=== PATIENT | female | born 1940 | race Caucasian/White ===

== ENCOUNTER 2016-12-19 18:53 | Outpatient (CLI) | payer MEDICARE, BC ==
--- NOTE | 2016-12-20 14:05 | Ultrasound Report ---
TRANSVAGINAL PELVIC ULTRASOUND: 12/19/2016 CLINICAL HISTORY: The patient having vaginal bleeding. The patient had a hysterectomy 20 years ago. FINDINGS: The uterus has been surgically removed. The right ovary has been surgically removed. The l eft ovary was surgically removed. Transvaginal ultrasound showed no significant abnormality. IMPRESSION: 1. PAST HISTORY OF TOTAL HYSTERECTOMY. 2. PRESENT TRANSVAGINAL ULTRASOUND SHOWS NO ABNORMALITY. JOB #: [id number] EXT JOB #:[id number]
== END 2016-12-19 18:54 | disposition home or self-care (01) ==
LOC: DI 18:53
PROVIDERS: ATTEND Nurse Practitioner Family
DX: N93.9 Abnormal uterine and vaginal bleeding, unspecified (principal); Z90.710 Acquired absence of both cervix and uterus
CPT/HCPCS: 76830

== ENCOUNTER 2017-01-22 14:50 | Outpatient (CLI) | payer MEDICARE, BC ==
--- NOTE | 2017-01-22 17:01 | Ultrasound Report ---
ABDOMINAL ULTRASOUND: 01/22/2017 CLINICAL INDICATION: Followup pancreatic lesion. COMPARISON: 07/06/2016, 01/11/2016, 07/05/2015, 12/24/2014 TECHNIQUE: Real-time scanning was performed with fraud representative static images obtained. FINDINGS: The liver measures 17.5 cm. Hemangioma on the right lobe is again noted, measuring 3.1 cm maximal diameter. Tiny cysts are again seen. Hepatic echogenicity appears increased, compatible with fatty infiltration. The gallbladder is unremarkable. The common bile duct measures 6 mm. No intrahepatic biliary dilatation is seen. The cyst in the head of the pancreas is again seen, measuring 1.8 cm. The cyst in the tail of the pancreas is again seen, measuring 0.7 cm. No new lesion is noted. The kidneys are unremarkable, with the right measuring 10.5 cm and the left measuring 11.7 cm. The spleen measures 9.4 cm, and demonstrates normal echotexture. The abdominal aorta and inferior vena cava are unremarkable. No free fluid is present. IMPRESSION: 1. STABLE CYSTS IN THE HEAD AND TAIL OF THE PANCREAS. NO NEW PANCREATIC LESION. 2. STABLE HEPATIC HEMANGIOMA AND TINY HEPATIC CYSTS. JOB #: [id number] EXT JOB #: [id number] PETE
== END 2017-01-22 14:51 | disposition home or self-care (01) ==
LOC: DI 14:50
PROVIDERS: ATTEND Internal Medicine Gastroenterology
DX: K86.2 Cyst of pancreas (principal); D18.03 Hemangioma of intra-abdominal structures; K76.89 Other specified diseases of liver
CPT/HCPCS: 76700

== ENCOUNTER 2017-08-05 08:51 | Outpatient (CLI) | payer MEDICARE, BC ==
[2017-08-05 19:39] LABS: BASOPHILS # (AUTO) 0.1 10^3/uL (0.0-0.1); BASOPHILS % (AUTO) 1.3 %; EOSINOPHILS # (AUTO) 0.1 10^3/uL (0.0-0.7); EOSINOPHILS % (AUTO) 1.7 %; HGB - HEMOGLOBIN 12.8 g/dL (12.0-16.0); LYMPHOCYTES # (AUTO) 1.1 10^3/uL (1.5-3.5); LYMPHOCYTES % (AUTO) 26.2 %; MEAN CORPUSCULAR HEMOGLOBIN 30.7 pg (27.0-31.0); MEAN PLATELET VOLUME 8.9 fL (7.9-10.8); MONOCYTES # (AUTO) 0.4 10^3/uL (0.0-1.0); MONOCYTES % (AUTO) 10.2 %; NEUTROPHILS # (AUTO) 2.6 10^3/uL (1.5-6.6); NEUTROPHILS % (AUTO) 60.6 %; PLT - PLATELET COUNT 203 10^3/uL (130-450); RED BLOOD COUNT 4.16 10^6/uL (4.20-5.40); RED CELL DISTRIBUTION WIDTH 13.5 % (12.0-15.0); WHITE BLOOD COUNT 4.2 x10^3/uL (4.8-10.8)
[2017-08-05 20:01] LABS: ALBUMIN 3.7 g/dL (3.2-5.5); ALBUMIN/GLOBULIN RATIO 1.3 (1.0-2.2); ALKALINE PHOSPHATASE 65 IU/L (42-121); ALT ALANINE AMINOTRANSFERASE 33 IU/L (10-60); AST ASPARTATE AMINOTRANSFERASE 30 IU/L (10-42); BILIRUBIN,TOTAL 0.5 mg/dL (0.2-1.0); BUN - BLOOD UREA NITROGEN 17 mg/dL (6-20); CALCIUM 9.2 mg/dL (8.5-10.3); CARBON DIOXIDE - CO2 26 mmol/L (21-32); CHLORIDE 106 mmol/L (101-111); CHOL/HDL RATIO 7.6 (<4.4); CHOLESTEROL 296 mg/dL; CREATININE 0.7 mg/dL (0.4-1.0); GFR - MDRD 81 (>89); GLUCOSE 90 mg/dL (70-100); HDL CHOLESTEROL 39 mg/dL; LDL CHOLESTEROL,CALCULATED 213 mg/dL; LDL/HDL RATIO 5.5 (<4.4); SODIUM 140 mmol/L (135-145); TOTAL PROTEIN 6.6 g/dL (6.7-8.2); VLDL CHOLESTEROL 44 mg/dL
== END 2017-08-05 08:52 | disposition home or self-care (01) ==
LOC: LAB.F 08:51
PROVIDERS: ATTEND Nurse Practitioner Family
DX: Z00.00 Encounter for general adult medical examination without abnormal findings (principal); E78.5 Hyperlipidemia, unspecified; K21.9 Gastro-esophageal reflux disease without esophagitis; Z79.1 Long term (current) use of non-steroidal anti-inflammatories (NSAID)
CPT/HCPCS: 36415; 80053; 80061; 84443; 85025

== ENCOUNTER 2017-09-05 13:05 | Outpatient (CLI) | payer MEDICARE, BC ==
[2017-09-05 17:40] LABS: BASOPHILS % (AUTO) 0.8 %; EOSINOPHILS # (AUTO) 0.1 10^3/uL (0.0-0.7); HGB - HEMOGLOBIN 12.9 g/dL (12.0-16.0); LYMPHOCYTES # (AUTO) 1.5 10^3/uL (1.5-3.5); LYMPHOCYTES % (AUTO) 24.5 %; MEAN CORPUSCULAR HEMOGLOBIN 29.9 pg (27.0-31.0); MEAN CORPUSCULAR HGB CONC 32.6 g/dL (32.0-36.0); MEAN CORPUSCULAR VOLUME 91.5 fL (81.0-99.0); MEAN PLATELET VOLUME 8.7 fL (7.9-10.8); MONOCYTES # (AUTO) 0.5 10^3/uL (0.0-1.0); MONOCYTES % (AUTO) 8.7 %; PLT - PLATELET COUNT 202 10^3/uL (130-450); RED BLOOD COUNT 4.31 10^6/uL (4.20-5.40); RED CELL DISTRIBUTION WIDTH 13.5 % (12.0-15.0); WHITE BLOOD COUNT 6.2 x10^3/uL (4.8-10.8)
== END 2017-09-05 13:06 | disposition home or self-care (01) ==
LOC: LAB.F 13:05
PROVIDERS: ATTEND Nurse Practitioner Family
DX: D72.818 Other decreased white blood cell count (principal)
CPT/HCPCS: 36415; 85025

== ENCOUNTER 2017-11-18 12:49 | Outpatient (CLI) | payer MEDICARE, BC ==
[~2017-11-18 12:49] MED LIST: GADOBUTROL 7.5 MMOL/7.5 ML VIAL ONE
[2017-11-18] MEDS: GADOBUTROL 7.5 MMOL/7.5 ML VIAL IVP ONE (13:39)
--- NOTE | 2017-11-18 17:18 | MRI Report ---
EXAM: MRI BRAIN WITHOUT AND WITH CONTRAST EXAM DATE: 11/18/2017 01:55 PM. CLINICAL HISTORY: PAROSMIA. Evaluate for olfactory groove tumor COMPARISON: None. TECHNIQUE: Multiplanar, multisequence T1-weighted and fluid-sensitive MR sequences of the brain were performed. Sequences optimized for routine evaluation. Other: None. IV Contrast: Yes. 7 mL Gadavist FINDINGS: Brain Volume: Normal for age. Parenchyma: No acute hemorrhage, mass, or infarct. Moderate scattered T2/FLAIR hyperintense periventr icular, deep, and subcortical white matter lesions within cerebral hemispheres bilaterally. No parenc hymal foci susceptibility artifact. No abnormal enhancement. Normal MRI appearance of the of olfactor y bulbs (for example series 901 image 11). No MRI evidence of old factory groove tumor. Ventricles/Cisterns: No hydrocephalus. No abnormal extra-axial fluid collection or hemorrhage. Orbits: Status post bilateral lens replacement surgery. Otherwise unremarkable. Sella Turcica: The pituitary gland, cavernous sinuses, suprasellar cistern and optic chiasm are unrem arkable. IAC: Symmetric and unremarkable. Vasculature: Normal signal flow void is seen in the major arterial structures at the skull base. The dural sinuses are patent and enhance normally. Sinuses: No acute sinus disease. Bones: No focal pathologic appearing marrow signal changes. Other: None. IMPRESSION: 1. Normal MRI appearance of the of olfactory bulbs (for example series 901 image 11). No MRI evidence of old factory groove tumor. 2. No MRI evidence of acute intracranial abnormality. Specifically, no evidence of acute or subacute infarct, acute intracranial hemorrhage, mass, midline shift, or hydrocephalus. No abnormal intracran ial enhancement. 3. Moderate scattered T2/FLAIR hyperintense periventricular, deep, and subcortical white matter lesio ns within cerebral hemispheres bilaterally. While nonspecific, these are favored to represent sequela of chronic microangiopathy. [facility] Referring Provider Line: [phone] SITE ID: [id number]
== END 2017-11-18 12:50 | disposition home or self-care (01) ==
LOC: LAB 12:49
PROVIDERS: ATTEND Otolaryngology Facial Plastic Surgery
DX: R43.1 Parosmia (principal)
CPT/HCPCS: 70553; A9585

== ENCOUNTER 2018-01-23 07:23 | Outpatient (CLI) | payer MEDICARE, BC ==
--- NOTE | 2018-01-23 12:49 | Ultrasound Report ---
Procedure Date: 01/23/2018 Accession Number: [id number] / [id number] Procedure: US - Abdomen Complete CPT Code: FULL RESULT: EXAM: Abdomen Complete DATE: 01/23/2018 9:09 AM CLINICAL HISTORY: MASS OF PANCREAS COMPARISON: None. TECHNIQUE: Real-time scanning was performed with static images obtained. FINDINGS: Liver: The liver demonstrates small cysts, and a likely hemangioma posteriorly. These are unchanged. 18 cm. Main portal vein flow: Hepatopetal. Gallbladder: Normal. No stones, wall thickening, or sonographic Aldana's sign. Biliary System: Common bile duct measures 4 mm. No intrahepatic or extrahepatic ductal dilatation. Pancreas: The pancreas again demonstrates cysts. Additionally, a tiny lymph node is noted posterior to the tail. Kidneys: Right: 10.2 cm longitudinally. Normal. No contour-deforming mass, stones, or hydronephrosis. Left: 10.5 cm longitudinally. Normal. No contour-deforming mass, stones, or hydronephrosis. Spleen: 9.3 cm. Normal in size and echotexture. Aorta and Inferior Vena Cava: Unremarkable. IMPRESSION: Stable hepatic hemangioma. Stable hepatic and pancreatic cysts. Small lymph node posterior to the tail of the pancreas. No definite solid pancreatic mass is identified. [facility]
== END 2018-01-23 07:24 | disposition home or self-care (01) ==
LOC: DI 07:23
PROVIDERS: ATTEND Internal Medicine Gastroenterology
DX: D18.03 Hemangioma of intra-abdominal structures (principal); K86.2 Cyst of pancreas; K76.89 Other specified diseases of liver
CPT/HCPCS: 76700

== ENCOUNTER 2018-06-27 12:52 | Outpatient (CLI) | payer MEDICARE, BC | END 2018-06-27 12:53 | disposition home or self-care (01) | LOC: DI 12:52 | PROVIDERS: ATTEND Internal Medicine Cardiovascular Disease | DX: R00.2 Palpitations (principal); I51.7 Cardiomegaly; I51.89 Other ill-defined heart diseases | CPT/HCPCS: 93306 ==

== ENCOUNTER 2018-08-10 09:14 | Outpatient (CLI) | payer MEDICARE, BC ==
[2018-08-10 09:43] LABS: BASOPHILS % (AUTO) 0.7 %; EOSINOPHILS # (AUTO) 0.1 10^3/uL (0.0-0.7); HGB - HEMOGLOBIN 12.9 g/dL (12.0-16.0); LYMPHOCYTES # (AUTO) 1.1 10^3/uL (1.5-3.5); LYMPHOCYTES % (AUTO) 21.3 %; MEAN CORPUSCULAR HEMOGLOBIN 31.6 pg (27.0-31.0); MEAN CORPUSCULAR HGB CONC 34.7 g/dL (32.0-36.0); MEAN CORPUSCULAR VOLUME 90.9 fL (81.0-99.0); MEAN PLATELET VOLUME 8.2 fL (7.9-10.8); MONOCYTES # (AUTO) 0.6 10^3/uL (0.0-1.0); NEUTROPHILS # (AUTO) 3.3 10^3/uL (1.5-6.6); PLT - PLATELET COUNT 190 10^3/uL (130-450); RED BLOOD COUNT 4.09 10^6/uL (4.20-5.40); RED CELL DISTRIBUTION WIDTH 13.2 % (12.0-15.0)
[2018-08-10 10:11] LABS: ALBUMIN 3.5 g/dL (3.2-5.5); ALBUMIN/GLOBULIN RATIO 1.3 (1.0-2.2); ALKALINE PHOSPHATASE 72 IU/L (42-121); ALT ALANINE AMINOTRANSFERASE 18 IU/L (10-60); AST ASPARTATE AMINOTRANSFERASE 22 IU/L (10-42); BILIRUBIN,TOTAL 0.5 mg/dL (0.2-1.0); BUN - BLOOD UREA NITROGEN 19 mg/dL (6-20); CALCIUM 9.1 mg/dL (8.5-10.3); CARBON DIOXIDE - CO2 26 mmol/L (21-32); CHLORIDE 106 mmol/L (101-111); CHOLESTEROL 247 mg/dL; CREATININE 0.6 mg/dL (0.4-1.0); GFR - MDRD 96 (>89); GLUCOSE 95 mg/dL (70-100); HDL CHOLESTEROL 41 mg/dL; LDL CHOLESTEROL,CALCULATED 163 mg/dL; SODIUM 139 mmol/L (135-145); TOTAL PROTEIN 6.3 g/dL (6.7-8.2); VLDL CHOLESTEROL 43 mg/dL
== END 2018-08-10 09:15 | disposition home or self-care (01) ==
LOC: LAB 09:14
PROVIDERS: ATTEND Internal Medicine
DX: K21.9 Gastro-esophageal reflux disease without esophagitis (principal); E78.5 Hyperlipidemia, unspecified
CPT/HCPCS: 36415; 80053; 80061; 83721; 85025

== ENCOUNTER 2018-12-05 09:11 | Outpatient (CLI) | payer MEDICARE, BC ==
--- NOTE | 2018-12-06 20:00 | Ultrasound Report ---
Reason: MASS OF PANCREAS Procedure Date: 12/05/2018 Accession Number: [id number] / [id number] Procedure: US - Abdomen Complete CPT Code: FULL RESULT: EXAM: ABDOMEN ULTRASOUND EXAM DATE: 12/05/2018 10:06 AM. CLINICAL HISTORY: MASS OF PANCREAS. COMPARISON: ABDOMEN COMPLETE 01/23/2018 7:49 AM. TECHNIQUE: Real-time scanning was performed with static images obtained. FINDINGS: Liver: Hyperechoic. Hyperechoic mass in the right hepatic lobe measures 2.8 x 2.1 x 2.4 cm, previously 2.7 x 2.8 x 2.5 cm. Few small biliary cystic hamartomas seen. 18.3 cm. Main portal vein flow: Hepatopetal. Gallbladder: Normal. No stones, wall thickening, or sonographic Aldana's sign. Biliary System: Common bile duct measures 6 mm. No intrahepatic or extrahepatic ductal dilatation. Pancreas: Anechoic cystic mass in the pancreatic head measures 1.7 x 2.3 x 1.4 cm, previously 1.9 x 1.7 x 1.1 cm, without a mural nodule seen, does not appear significantly changed. Small hypoechoic solid mass in the pancreatic body measures 1.2 x 0.8 x 1.1 cm, previously 0.7 x 0.6 x 0.8 cm, does not appear significantly changed given differences in measurement technique. Additional small hypoechoic mass in the pancreatic neck measures 0.5 x 0.6 x 0.4 cm, not previously seen. Kidneys: Right: 10.1 cm longitudinally. Normal. No contour-deforming mass, stones, or hydronephrosis. Left: 11.4 cm longitudinally. Normal. No contour-deforming mass, stones, or hydronephrosis. Spleen: 9.7 cm. Normal in size and echotexture. Aorta and Inferior Vena Cava: Unremarkable. Other: None. IMPRESSION: 1. Hyperechoic mass in the right hepatic lobe is incompletely characterized, not significantly changed in size. Hemangiomas can have this appearance. Dedicated liver MRI can fully characterize this liver lesion. 2. Cystic lesion in the pancreatic head is incompletely characterized, not significantly changed. Cystic neoplasm or pseudocyst possible. Dedicated pancreas MRI can fully characterize this pancreatic lesion. 3. Couple small solid appearing lesions in the pancreatic neck and body can also be characterized with pancreas MRI if not already performed 4. Hepatic steatosis [facility]
== END 2018-12-05 09:12 | disposition home or self-care (01) ==
LOC: DI 09:11
PROVIDERS: ATTEND Internal Medicine Gastroenterology
DX: K86.9 Disease of pancreas, unspecified (principal); R16.0 Hepatomegaly, not elsewhere classified; K76.0 Fatty (change of) liver, not elsewhere classified
CPT/HCPCS: 76700

== ENCOUNTER 2018-12-14 07:14 | Outpatient (CLI) | payer MEDICARE, BC ==
[2018-12-14] MEDS ORDERED: GADOBUTROL 7.5 MMOL/7.5 ML VIAL ONE (07:50)
[2018-12-14] MEDS ORDERED: GADOBUTROL 7.5 MMOL/7.5 ML VIAL IVP ONE (09:45)
--- NOTE | 2018-12-14 11:05 | MRI Report ---
Reason: MASS OF PANCREAS,ABNORMAL RADIOLOGY EXAM Procedure Date: 12/14/2018 Accession Number: [id number] / [id number] Procedure: MRI - MRCP W/WO CPT Code: FULL RESULT: EXAM: MR ABDOMEN WITH AND WITHOUT CONTRAST EXAM DATE: 12/14/2018 09:15 AM. CLINICAL HISTORY: Mass of pancreas, abnormal radiology exam. COMPARISON: ABDOMEN COMPLETE 01/11/2016 1:18 PM ABDOMEN COMPLETE 07/06/2016 9:27 AM ABDOMEN COMPLETE 12/05/2018 9:16 AM. TECHNIQUE: Multiplanar breath-hold T1, T2, and DWI sequences obtained through the abdomen on an MR scanner. Images obtained before and after administration of 7 mL Gadavist intravenous contrast. FINDINGS: Lung Bases: Unremarkable. Liver: The 2.8 cm hepatic lesion demonstrates progressive contrast enhancement over time in a peripheral nodular pattern increasing towards the center of hemangioma. Additional small hepatic lesions including an enhancing 1.1 cm right lobe of the liver lesion as seen on image 43, follows blood pool on all contrast sequences, benign appearance likely flash filling hemangioma. Multiple subcentimeter hepatic cysts are also noted. Gallbladder: The gallbladder is partially distended and appears normal with no wall thickening or stone. Pancreas: The cystic pancreatic head lesion measures 1.7 x 1.2 cm and contains septations as well as soft tissue nodule which appears to enhance. Connection to the pancreatic duct which measures up to 2.5 mm. The pancreatic tail cystic lesion measures 2.1 x 1.3 cm and appears to demonstrate communication with the pancreatic duct by a side branch, sidebranch IPMN. The 0.8 cm pancreatic body cyst also appears to communicate with the pancreatic duct, branch duct IPMN. Additional tiny cysts in the region of the pancreatic body and tail junction are too small to characterize. Spleen: The spleen appears normal. Kidneys and Adrenals: The kidneys appear normal with no mass or hydronephrosis. There are subcentimeter cysts in the kidneys. The adrenals appear normal. Bowel: The small bowel and colon appear normal with no inflammation or obstruction. Retroperitoneum: The retroperitoneal structures appear normal with no mass or lymphadenopathy. IMPRESSION: Liver hemangiomas and cysts with no suspicious liver lesion identified. 1.7 cm multicystic pancreatic head neoplasm without communication with the pancreatic duct, this favors serous cystadenoma. 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 Additional 0.8 cm branch duct IPMN in the pancreatic body as well as pancreatic cystic lesions too small to characterize. LULA
== END 2018-12-14 07:15 | disposition home or self-care (01) ==
LOC: DI 07:14
PROVIDERS: ATTEND Internal Medicine Gastroenterology
DX: D18.03 Hemangioma of intra-abdominal structures (principal); K76.89 Other specified diseases of liver; D49.0 Neoplasm of unspecified behavior of digestive system; K86.2 Cyst of pancreas
CPT/HCPCS: 74183; A9585

== ENCOUNTER 2019-05-08 07:28 | Outpatient (CLI) | payer MEDICARE, BC ==
--- NOTE | 2019-05-10 16:11 | Ultrasound Report ---
Reason: MASS OF PANCREAS Procedure Date: 05/08/2019 Accession Number: [id number] / [id number] Procedure: US - Abdomen Complete CPT Code: FULL RESULT: EXAM: ABDOMEN ULTRASOUND EXAM DATE: 05/08/2019 08:30 AM. CLINICAL HISTORY: MASS OF PANCREAS. COMPARISON: ABDOMEN COMPLETE 12/05/2018 9:16 AM MRCP W/WO 12/14/2018 7:46 AM. TECHNIQUE: Real-time scanning was performed with static images obtained. FINDINGS: Liver: Anechoic 0.4 x 0.3 x 0.5 cm inferior left liver cyst. Incidental 0.4 cm right liver calcification. Lobular hyperechoic right liver 2.1 x 3.2 x 2.7 cm avascular mass. This corresponds to the previous 2.8 cm liver hemangioma seen on prior MRI. Hypoechoic right liver nodule measures 0.9 x 0.9 x 1.1 cm. Mild peripheral vascularity noted. No intrahepatic bile duct dilation. Right liver measures 17.9 cm. Main portal vein flow: Hepatopetal. Gallbladder: Normal. No stones, wall thickening, or sonographic Aldana's sign. Biliary System: Common bile duct measures 3 mm. No intrahepatic or extrahepatic ductal dilatation. Pancreas: Anechoic cystic lesion in the pancreatic head measuring 1.8 x 1.1 x 1.4 cm. Septations are better seen on the prior MRI. No definite solid nodule on the current ultrasound. Previously measuring 1.7 x 1.2 cm on MRI. Indeterminate hypoechoic lesion in the body of the pancreas measuring 0.8 x 0.6 x 0.7 cm. Previously measuring 0.8 cm on MRI. Second cystic structure in the inferior aspect of the pancreas body measures 0.6 cm. Pancreatic tail lesion on MRI not seen on ultrasound. No calcifications or pancreatic ductal dilation or definite solid mass. Kidneys: Right: 10.5 cm longitudinally. Normal. No contour-deforming mass, stones, or hydronephrosis. Left: 11.8 cm longitudinally. Normal. No contour-deforming mass, stones, or hydronephrosis. Spleen: 9.9 x 3.2 x 9.5 cm. Normal in size and echotexture. Aorta and Inferior Vena Cava: Atheromatous plaques are noted in the abdominal aorta. No abdominal aortic aneurysm. Normal IVC. Other: None. IMPRESSION: 1. Stable 3.2 cm right liver hemangioma. 0.9 cm right liver mildly vascular nodule could represent an additional hemangioma. No intrahepatic bile duct dilation. 2. Normal gallbladder and common bile duct. 3. Stable 1.8 cm cystic lesion in the pancreatic head. Septations or mural nodules were seen better on prior MRI. This was felt to represent a serous cystadenoma on a prior MRI. Two hypoechoic cystic lesions in the pancreatic body measuring 0.6 cm and 0.8 cm, respectively. Pancreatic tail lesion not seen on ultrasound. 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 [facility]
== END 2019-05-08 07:29 | disposition home or self-care (01) ==
LOC: DI 07:28
PROVIDERS: ATTEND Internal Medicine Gastroenterology
DX: K86.9 Disease of pancreas, unspecified (principal); D18.03 Hemangioma of intra-abdominal structures
CPT/HCPCS: 76700

== ENCOUNTER 2020-05-15 07:56 | Outpatient (CLI) | payer MEDICARE, BC ==
[2020-05-15 08:36] LABS: CALCIUM 9.5 mg/dL (8.5-10.3); CREATININE 0.8 mg/dL (0.4-1.0)
--- NOTE | 2020-05-15 12:18 | Ultrasound Report ---
PROCEDURE: Carotid Doppler Complete INDICATIONS: CLAUDICATION OF UPPER EXTREMITY TECHNIQUE: Color and pulse Doppler interrogation was performed of both carotid systems, with image documentation and velocity measurements. COMPARISON: None. FINDINGS: Right side: Common carotid artery peak systolic velocity: 90 cm/sec. Internal carotid artery peak systolic velocity: 73 cm/sec. Internal carotid artery end diastolic velocity: 21 cm/sec. External carotid artery peak systolic velocity: 131 cm/sec. ICA/CCA peak systolic ratio: 0.8 . Bell scale imaging description: Minimal plaque at the bifurcation. Percent internal carotid artery stenosis: Most 50% . Vertebral artery: Flow direction is antegrade. Left side: Common carotid artery peak systolic velocity: 100 cm/sec. Internal carotid artery peak systolic velocity: 55 cm/sec. Internal carotid artery end diastolic velocity: 14 cm/sec. External carotid artery peak systolic velocity: 61 cm/sec. ICA/CCA peak systolic ratio: 0.5 . Bell scale imaging description: No visualized plaque. Percent internal carotid artery stenosis: No hemodynamically significant stenosis . Vertebral artery: Flow direction is antegrade. IMPRESSION: Wasn't 50% stenosis is noted at the origin of the right internal carotid artery. The estimate of stenosis included in the report of the imaging study was calculated using the NASCET method Reviewed by: Ness Olivares MD on 05/15/2020 12:17 PM PDT Approved by: Ness Olivares MD on 05/15/2020 12:17 PM PDT Station ID: [id number]
--- NOTE | 2020-05-15 12:19 | Ultrasound Report ---
PROCEDURE: Aorta Screening INDICATIONS: PROMINENT ABDOMINAL AORTIC PULSATION TECHNIQUE: Real time scanning was performed of the aorta and iliac arteries, with image documentatio n. COMPARISON: FINDINGS: Aorta: Proximal aortic diameter measures 2.2 x 2.3 cm. Mid-aorta measures 2.4 x 2.5 cm. Distal aor tic diameter is 1.8 x 2.1 cm. Plaque is identified within the mid to distal portion. Iliac arteries: Right common iliac artery measures 1.1 x 1.1 cm. Left common iliac artery measures 1.1 x 1.1 cm. IMPRESSION: Atherosclerotic plaque without aneurysmal dilation. Reviewed by: Ness Olivares MD on 05/15/2020 12:17 PM PDT Approved by: Ness Olivares MD on 05/15/2020 12:17 PM PDT Station ID: [id number]
== END 2020-05-15 07:57 | disposition home or self-care (01) ==
LOC: DI 07:56
PROVIDERS: ATTEND Internal Medicine Cardiovascular Disease
DX: I70.0 Atherosclerosis of aorta (principal); I65.21 Occlusion and stenosis of right carotid artery; I73.9 Peripheral vascular disease, unspecified; I10 Essential (primary) hypertension
CPT/HCPCS: 36415; 76706; 80048; 93880

== ENCOUNTER 2020-06-11 07:48 | Outpatient (CLI) | payer MEDICARE, BC ==
--- NOTE | 2020-06-11 09:34 | Ultrasound Report ---
PROCEDURE: Abdomen Complete INDICATIONS: MASS OF PANCREAS TECHNIQUE: Real-time scanning was performed of the abdominal and retroperitoneal organs, with image documentatio n. COMPARISON: MRI examination dated 12.14.18. Ultrasound examination dated 05.08.19. FINDINGS: Liver: Liver is normal in size. Multiple hepatic cysts, largest of which measures 6 mm. There is a h yperechoic focus within the right hepatic lobe posteriorly measuring 23 mm x 28 mm x 26 mm, which is unchanged by ultrasound, but demonstrates no definite correlate on the comparison MRI examination. Gallbladder: Within normal limits Biliary ducts: Intrahepatic bile ducts are non-dilated. Extrahepatic bile duct caliber measures 5 m m. Normal is 6-7 mm or less in diameter, or 10 mm or less post-cholecystectomy. Pancreas: Multiple cysts within the pancreatic head and body are present. Spleen: Spleen is normal in size and homogeneous in echotexture. Kidneys: Kidneys are normal in size and echotexture. Right kidney measures 9.8 cm long; left kidney measures 11.3 cm long. No hydronephrosis or nephrolithiasis. No solid masses. Aorta: Visualized aorta is normal in caliber at less than 3 cm. Iliacs: Proximal common iliac arteries are normal in caliber at less than 2.5 cm. IVC: Intrahepatic inferior vena cava is patent. Miscellaneous: No free abdominal fluid. IMPRESSION: 1. No acute process. 2. 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 This could be further as sessed with pancreatic protocol MRI with and without intravenous contrast, if clinically indicated 3. No change in hyperechoic focus within the right hepatic lobe posteriorly, possibly indicating conf luent calcifications or hemangioma. Reviewed by: Milagros Vaughn MD on 06/11/2020 8:[address] [facility] Approved by: Milagros Vaughn MD on 06/11/2020 8:[address] [facility] Station ID: [id number]
== END 2020-06-11 07:49 | disposition home or self-care (01) ==
LOC: DI 07:48
PROVIDERS: ATTEND Internal Medicine Gastroenterology
DX: K86.2 Cyst of pancreas (principal); R93.2 Abnormal findings on diagnostic imaging of liver and biliary tract
CPT/HCPCS: 76700

== ENCOUNTER 2021-01-10 09:30 | Outpatient (CLI) | payer MEDICARE, BC ==
--- NOTE | 2021-01-10 17:35 | Ultrasound Report ---
PROCEDURE: Abdomen Limited INDICATIONS: PANCREAS CYST TECHNIQUE: Real-time scanning was performed of the abdominal and retroperitoneal organs, with image documentatio n. COMPARISON: 06/11/2020 and 05/15/2020. MRCP dated 12/14/2018 FINDINGS: Liver: Liver is diffusely echogenic. Multiple left hepatic lobe cysts with the largest measuring 1.0 cm in size. Redemonstration of right hepatic lobe echogenic lesion measuring 3.2 x 2.0 x 2.7 cm. This likely represents a hemangioma. Gallbladder: Gallbladder is normal in sonographic appearance without gallstones, wall thickening, per icholecystic fluid, or abnormal sonographic Aldana's sign. Biliary ducts: Intrahepatic bile ducts are non-dilated. Extrahepatic bile duct caliber measures 5 m m. Normal is 6-7 mm or less in diameter, or 10 mm or less post-cholecystectomy. Pancreas: Multiple pancreatic cysts are again noted. Accounting for differences in imaging technique , these appear relatively stable. Pancreatic head cyst measures 2.0 x 1.6 x 1.2 cm. Two pancreatic jennifer dy cysts are noted one measures 0.6 x 0.6 x 0.4 cm. The other measures 0.8 x 0.7 x 0.6 cm. This secon d pancreatic body cyst appears more hypoechoic. Pancreatic tail cyst measures 0.7 x 0.6 x 0.6 cm. Oth erwise, visualized portions of the pancreas are sonographically unremarkable. Kidneys: Right kidney is normal in size and echotexture. Right kidney measures 10.0 cm long. No hyd ronephrosis or nephrolithiasis. No solid masses. Miscellaneous: No free abdominal fluid. IMPRESSION: 1. Multiple pancreatic cysts appear stable when accounting for slight differences in imaging techniqu e. 2. Multiple hepatic cysts redemonstrated. 3. Right hepatic lobe hemangioma. 4. Hepatic steatosis. Reviewed by: Kevon Lopez MD on 01/10/2021 5:33 PM PDT Approved by: Kevon Lopez MD on 01/10/2021 5:33 PM PDT Station ID: [id number]
== END 2021-01-10 09:31 | disposition home or self-care (01) ==
LOC: DI 09:30
PROVIDERS: ATTEND Internal Medicine Gastroenterology
DX: K86.2 Cyst of pancreas (principal); K76.89 Other specified diseases of liver; D18.03 Hemangioma of intra-abdominal structures; K76.0 Fatty (change of) liver, not elsewhere classified

== ENCOUNTER 2021-01-26 15:33 | Outpatient (CLI) | payer MEDICARE, BC ==
--- NOTE | 2021-01-26 16:28 | XRAY Report ---
PROCEDURE: Knee 3 View RT INDICATIONS: RT KNEE PAIN TECHNIQUE: 3 views of the right knee(s) were acquired. COMPARISON: None. FINDINGS: Bones: No fractures or dislocations. No suspicious bony lesions. Mild tricompartmental osteoarthrit is. Superior patellar bone spur. Soft tissues: Trace nonspecific suprapatellar joint effusion. No suspicious soft tissue calcification s. IMPRESSION: Mild tricompartmental osteoarthritis. Reviewed by: Gail Foreman MD, PhD on 01/26/2021 4:26 PM PDT Approved by: Gail Foreman MD, PhD on 01/26/2021 4:26 PM PDT Station ID: [id number]
== END 2021-01-26 15:34 | disposition home or self-care (01) ==
LOC: DI 15:33
PROVIDERS: ATTEND Nurse Practitioner Family
DX: M25.561 Pain in right knee (principal); G89.29 Other chronic pain; M17.11 Unilateral primary osteoarthritis, right knee

== ENCOUNTER 2022-02-25 22:05 | Emergency (ER) | payer MEDICARE, BC ==
[2022-02-25] MEDS ORDERED: diltiaZEM INJ 5 MG/ML VIAL IVP STA (22:34)
[2022-02-25] MEDS ORDERED: SODIUM CHLORIDE 0.9% 500 ML IV STA (22:34)
[2022-02-25 22:49] LABS: BASOPHILS % (AUTO) 0.7 %; EOSINOPHILS # (AUTO) 0.1 10^3/uL (0.0-0.7); EOSINOPHILS % (AUTO) 1.9 %; HCT - HEMATOCRIT 34.8 % (37.0-47.0); HGB - HEMOGLOBIN 11.7 g/dL (12.0-16.0); LYMPHOCYTES # (AUTO) 1.3 10^3/uL (1.5-3.5); LYMPHOCYTES % (AUTO) 22.5 %; MEAN CORPUSCULAR HGB CONC 33.6 g/dL (32.0-36.0); MEAN CORPUSCULAR VOLUME 92.3 fL (81.0-99.0); MEAN PLATELET VOLUME 9.9 fL (7.9-10.8); MONOCYTES # (AUTO) 0.7 10^3/uL (0.0-1.0); MONOCYTES % (AUTO) 12.2 %; NEUTROPHILS # (AUTO) 3.7 10^3/uL (1.5-6.6); NEUTROPHILS % (AUTO) 62.5 %; PLT - PLATELET COUNT 174 10^3/uL (130-450); RED BLOOD COUNT 3.77 10^6/uL (4.20-5.40); RED CELL DISTRIBUTION WIDTH 13.5 % (12.0-15.0); WHITE BLOOD COUNT 5.9 x10^3/uL (4.8-10.8)
[2022-02-25 23:02] LABS: ALBUMIN 3.5 g/dL (3.2-5.5); ALBUMIN/GLOBULIN RATIO 1.2 (1.0-2.2); BILIRUBIN,TOTAL 0.6 mg/dL (0.2-1.0); CALCIUM 9.4 mg/dL (8.5-10.3); CREATININE 0.9 mg/dL (0.4-1.0); MAGNESIUM 2.3 mg/dL (1.7-2.8); POTASSIUM 3.4 mmol/L (3.5-5.0); TOTAL PROTEIN 6.5 g/dL (6.7-8.2)
--- NOTE | 2022-02-25 23:09 | XRAY Report ---
PROCEDURE: Chest 1 View X-Ray INDICATIONS: palpitations TECHNIQUE: One view of the chest was acquired. COMPARISON: None. FINDINGS: Surgical changes and devices: None. Lungs and pleura: No pleural effusions or pneumothorax. Lungs are clear. Mediastinum: Mediastinal contours appear normal. Heart size is normal. Bones and chest wall: No suspicious bony lesions. Overlying soft tissues appear unremarkable. IMPRESSION: 1. No acute cardiopulmonary disease. Reviewed by: Romie Dueñas MD on 02/25/2022 11:07 PM PDT Approved by: Romie Dueñas MD on 02/25/2022 11:07 PM PDT Station ID: [id number]
[2022-02-25] MEDS ORDERED: POTASSIUM CHLORIDE 20 MEQ TABLET PO STA (23:31)
--- NOTE | 2022-02-25 23:32 | ED Physician Documentation ---
History of Present Illness - Stated complaint Stated Complaint: HEART PALPITATIONS - Chief complaint Chief Complaint: Cardiac - History obtained from History obtained from: Patient - Additonal information Additional information: Patient is an 81-year-old female with a history of palpitations presenting for evaluation of feeling her heart racing starting at 8:00 this evening. She just completed exercises that she was instructed to do for back spasms when she started feeling her heart racing. Her apple watch was reading her heart rate elevated into the 140s. At times it would jump down to the 70s. She denies feeling dizziness, near syncope, chest pain, trouble breathing or abdominal pain. She reports having history of palpitations in the past and did have a supervisor tunnel heading through her food products sales representative which did not reveal any abnormal rhythms. Her food products sales representative is Dr. Zuhair Boo through [facility] [employer].She denies a history of atrial fibrillation. She denies a history of strokes.Nothing makes her symptoms better or worse. Review of Systems Constitutional: denies: Fever Nose: denies: Congestion Cardiac: reports: Palpitations. denies: Chest pain / pressure Respiratory: denies: Dyspnea GI: denies: Abdominal Pain, Vomiting : denies: Dysuria Skin: denies: Rash Musculoskeletal: denies: Neck pain Neurologic: denies: Generalized weakness, Syncope, Headache PD PAST MEDICAL HISTORY - Present Medications Home Medications: Ambulatory Orders Medication Instructions Recorded Confirmed Apixaban [Eliquis] 5 mg PO BID 30 Days #60 tablet 02/26/22 diltiaZEM CD [Cardizem Cd] 120 mg PO DAILY #30 cap 02/26/22 - Allergies Allergies/Adverse Reactions: Allergies Allergy/AdvReac Type Severity Reaction Status Date / Time Penicillins Allergy Unknown Verified 02/25/22 22:17 Sulfa (Sulfonamide Allergy Nausea Verified 02/25/22 22:17 Antibiotics) PD ED PE NORMAL - General General: Alert and oriented X 3, No acute distress, Well developed/nourished - HEENT HEENT: Atraumatic, Moist mucous membranes - Neck Neck: Supple, no meningeal sign - Cardiac Cardiac: No murmur, Strong equal pulses, Other (Tachycardic, irregularly irregular) - Respiratory Respiratory: No respiratory distress, Clear bilaterally - Abdomen Abdomen: Normal bowel sounds, Soft, Non tender - Derm Derm: Warm and dry - Extremities Extremities: No deformity, No edema, No calf tenderness / cord - Neuro Neuro: Alert and oriented X 3, No motor deficit, Normal speech Results - Vitals Vitals: Vital Signs - 24 hr 02/25/22 02/25/22 22:18 22:51 Temperature 36.5 C Heart Rate 80 84 Respiratory 16 19 Rate Blood Pressure 168/93 H 153/68 H O2 Saturation 99 98 Oxygen O2 Source Room air - EKG (time done) 2219 Rate: Rate (enter#) (143) Rhythm: Atrial fibrillation [place]: Normal Ischemia: No: ST elevation c/w ischemia 2339 Rate: Rate (enter#) (86) Rhythm: NSR [place]: Normal Ischemia: No: ST elevation c/w ischemia, ST depression Compare to prior EKG: Changed from prior EKG - Labs Labs: Laboratory Tests 02/25/22 02/25/22 02/25/22 22:41 22:41 22:41 WBC 5.9 RBC 3.77 L Hgb 11.7 L Hct 34.8 L MCV 92.3 MCH 31.0 MCHC 33.6 RDW 13.5 Plt Count 174 MPV 9.9 Neut # (Auto) 3.7 Lymph # (Auto) 1.3 L [place] # (Auto) 0.7 Eos # (Auto) 0.1 Baso # (Auto) 0.0 Absolute Nucleated RBC 0.00 Nucleated RBC % 0.0 D-Dimer < 200.0 L Sodium 140 Potassium 3.4 L Chloride 107 Carbon Dioxide 23 Anion Gap 10.0 BUN 16 Creatinine 0.9 Estimated GFR (MDRD) 60 L Glucose 118 H Calcium 9.4 Magnesium 2.3 Total Bilirubin 0.6 AST 18 ALT 17 Alkaline Phosphatase 74 Troponin I High Sens Total Protein 6.5 L Albumin 3.5 Globulin 3.0 Albumin/Globulin Ratio 1.2 Lipase 42 TSH 02/25/22 02/25/22 22:41 22:41 WBC RBC Hgb Hct MCV MCH MCHC RDW Plt Count MPV Neut # (Auto) Lymph # (Auto) [place] # (Auto) Eos # (Auto) Baso # (Auto) Absolute Nucleated RBC Nucleated RBC % D-Dimer Sodium Potassium Chloride Carbon Dioxide Anion Gap BUN Creatinine Estimated GFR (MDRD) Glucose Calcium Magnesium Total Bilirubin AST ALT Alkaline Phosphatase Troponin I High Sens 9.4 Total Protein Albumin Globulin Albumin/Globulin Ratio Lipase TSH 3.56 PD MEDICAL DECISION MAKING - ED course Complexity details: reviewed results, re-evaluated patient, d/w patient ED course: Patient presenting for evaluation of palpitations. EKG demonstrates atrial fibrillation. Otherwise she is hemodynamically stable. Labs obtained. Patient denies chest pain or shortness of breath and has no signs of pulmonary embolism or Cardiac ischemia on lab testing. Patient converted back to sinus rhythm after 1 dose of IV Cardizem and fluid bolus. She remained in sinus rhythm and was ambulatory without any symptoms. Discussed options for treatment which include initiation of medications Which patient would like to do. Patient does have a food products sales representative and will reach out to Dr. Umaña in the morning for close follow-up. 2321 - I went to reevaluate the patient and noticed that she was in sinus rhythm on the monitor. Per the RN, patient converted to sinus rhythm as she was giving the diltiazem. Repeat EKG ordered. 1215 - Patient is feeling much better. Ambulated to the bathroom and no longer feels her heart pounding. Discussed recommendations for anticoagulation with atrial fibrillation. Patient's [id number] Score = 3. Her is on Eliquis. She is familiar with the medication and its risks and benefits and would like to take it.She is also agreeable to starting p.o. Cardizem. She will reach out to her food products sales representative as well in the morning for close follow-up and is aware of return precautions. Departure - Departure Disposition: 01 Home, Self Care Clinical Impression: Paroxysmal atrial fibrillation with rapid ventricular response Condition: Stable Instructions: Atrial Fibrillation Dc Prescriptions: diltiaZEM CD [Cardizem Cd] 120 mg PO DAILY #30 cap Apixaban [Eliquis] 5 mg PO BID 30 Days #60 tablet Comments: You were evaluated for palpitations and found to have atrial fibrillation. This is an irregular rhythm. Fortunately your heart did convert back to a normal rhythm. Your labs were overall reassuring with no signs of blood clots or heart attack. After discussion we did agree to start you on medication for atrial fibrillation including a blood thinner called Eliquis as well as called Cardizem which can help slow your heart rate down. I have sent prescriptions for both of these medications to [facility] in [place]. Please call your food products sales representative tomorrow morning to arrange for close follow-up. If you have any worsening symptoms please return to the emergency department.
[2022-02-26] MEDS ORDERED: APIXABAN 5 MG TABLET PO STA (00:16)
[2022-02-26] MEDS ORDERED: diltiaZEM CD 120 MG CAPSULE PO STA (00:17)
[2022-02-26 01:42] VITALS: BP 141/73
== END 2022-02-26 01:05 | disposition home or self-care (01) ==
LOC: EDUNIT# → ED 22:05
DX: I48.0 Paroxysmal atrial fibrillation (principal)
CPT/HCPCS: 36415; 71045; 80053; 83690; 83735; 84443; 84484; 85025; 85379; 93005; 96374; 99283; 99284; A9270

== ENCOUNTER 2022-04-08 08:04 | Outpatient (CLI) | payer MEDICARE, BC ==
[2022-04-08 08:44] LABS: CHOL/HDL RATIO 7.5 (<4.4); CHOLESTEROL 263 mg/dL; HDL CHOLESTEROL 35 mg/dL; LDL CHOLESTEROL,CALCULATED 179 mg/dL; LDL/HDL RATIO 5.1 (<4.4); TRIGLYCERIDES 245 mg/dL; VLDL CHOLESTEROL 49 mg/dL
== END 2022-04-08 08:05 | disposition home or self-care (01) ==
LOC: LAB 08:04
PROVIDERS: ATTEND Internal Medicine Cardiovascular Disease
DX: E78.2 Mixed hyperlipidemia (principal)
CPT/HCPCS: 36415; 80061; 83721

== ENCOUNTER 2022-07-04 12:42 | Outpatient (CLI) | payer MEDICARE, BC ==
[2022-07-04] MEDS ORDERED: iohexoL-300 100 ML VIAL ONE (12:49)
--- NOTE | 2022-07-04 17:05 | CT Report ---
PROCEDURE: ABDOMEN W/WO INDICATIONS: PANCREAS CYST CONTRAST: 100ml Omnipaque 300 TECHNIQUE: 4 phase scanning was performed. After the administration of intravenous contrast, 5 mm thick section s acquired from the diaphragm to the symphysis. 5 mm coronal and sagittal reformats were acquired. For radiation dose reduction, the following was used: automated exposure control, adjustment of mA a nd/or kV according to patient size. COMPARISON: MRCP 12/14/2018 and abdominal ultrasound 01/10/2021 FINDINGS: Image quality: Excellent. Lung bases: 5 mm solid right lateral lower lobe subpleural lung nodule. Lung bases are otherwise dom r. Normal heart size. No hiatal hernia. Pancreas: A 2.1 x 2.9 cm cystic mass at the distal tail of the pancreas has increased in size, previ ously measuring 2.1 cm in longest diameter. There is likely a new adjacent cyst centrally measuring 1 .3 cm. Cystic mass in the head of the pancreas measures 1.8 x 1.2 cm, fairly stable compared to 2019. No significant intrinsic enhancement. No visible septation. There is an indistinct hypoenhancing mas s in the proximal tail of the pancreas which does not appear cystic, measures about 2.2 x 1.8 cm, may be partially exophytic along the dorsal aspect. The duct distal to this mass appears more prominent compared to the proximal pancreatic duct and there is suspected mild distal glandular atrophy. On the venous phase of contrast, there is slight increase in internal enhancement and possible intrinsic cy stic changes. There is no adjacent fat stranding.. Other solid organs: Gallbladder is normal. Biliary system is non dilated. The liver contains numer ous subcentimeter focal hypodensities, probably cysts. Additionally in the pericaval right hepatic lo be, there is a lesion with arterial and venous characteristics of hepatic hemangioma. Spleen is gisela l in size and enhancement. No adrenal nodules. Both kidneys demonstrate normal size and enhancement , without hydronephrosis or nephrolithiasis. Nodes and vessels: No retroperitoneal or mesenteric adenopathy by size criteria. Aorta and inferior vena cava are normal in size. Bowel and peritoneum: Unenhanced bowel loops are normal in caliber. Normal appendix. No free fluid o r air. Bones: No suspicious bony lesions. Grade 1 anterolisthesis L4 on 5 No vertebral body compression fr actures. Miscellaneous: Small fat-containing umbilical hernia. IMPRESSION: 1. There are relatively stable, and possibly benign cystic lesions in the head and distal tail of the pancreas. There is likely a new cystic lesion adjacent to the distal tail lesion. 2. Appearance of an ill-defined hypoenhancing proximal pancreatic tail mass with possible intrinsic c ystic change. Given associated findings of distal pancreatic atrophy and slight ductal dilatation, fi ndings are somewhat concerning for an early adenocarcinoma. Correlation with CA 19 9 is recommended. 3. 5 mm right lower lobe lung nodule not previously seen. 4. Hepatic cysts and hepatic hemangioma, stable. Reviewed by: Alison Leos MD on 07/04/2022 5:04 PM PST Approved by: Alison Leos MD on 07/04/2022 5:04 PM PST Station ID: [id number]
[2022-07-04] MEDS ORDERED: iohexoL-300 100 ML VIAL IVP ONE (17:11)
== END 2022-07-04 12:43 | disposition home or self-care (01) ==
LOC: DI 12:42
PROVIDERS: ATTEND Internal Medicine Gastroenterology
DX: K86.2 Cyst of pancreas (principal); R91.1 Solitary pulmonary nodule; D18.03 Hemangioma of intra-abdominal structures; K76.89 Other specified diseases of liver
CPT/HCPCS: 74170; Q9967

== ENCOUNTER 2022-08-31 02:55 | Outpatient (CLI) | payer MEDICARE, BC | END 2022-08-31 02:56 | disposition EMS.NT | LOC: EMS 02:55 | DX: I48.91 Unspecified atrial fibrillation (principal) ==

== ENCOUNTER 2022-09-23 08:18 | Outpatient (CLI) | payer MEDICARE, BC ==
[2022-09-23 09:05] LABS: ALBUMIN 3.6 g/dL (3.2-5.5); ALKALINE PHOSPHATASE 79 IU/L (42-121); ALT ALANINE AMINOTRANSFERASE 18 IU/L (10-60); AST ASPARTATE AMINOTRANSFERASE 19 IU/L (10-42); BILIRUBIN,TOTAL 0.5 mg/dL (0.2-1.0); CHOL/HDL RATIO 3.6 (<4.4); CHOLESTEROL 160 mg/dL; HDL CHOLESTEROL 44 mg/dL; LDL CHOLESTEROL,CALCULATED 72 mg/dL; LDL/HDL RATIO 1.6 (<4.4); TOTAL PROTEIN 6.9 g/dL (6.7-8.2); TRIGLYCERIDES 219 mg/dL; VLDL CHOLESTEROL 44 mg/dL
[2022-09-23 09:49] LABS: BILIRUBIN,DIRECT < 0.1 mg/dL (0.1-0.5)
== END 2022-09-23 08:19 | disposition home or self-care (01) ==
LOC: LAB 08:18
PROVIDERS: ATTEND Internal Medicine Cardiovascular Disease
DX: I48.0 Paroxysmal atrial fibrillation (principal); E78.2 Mixed hyperlipidemia
CPT/HCPCS: 36415; 80061; 80076; 83721

== ENCOUNTER 2022-10-18 13:23 | Outpatient (CLI) | payer MEDICARE, BC ==
[2022-10-18 13:36] LABS: BASOPHILS # (AUTO) 0.1 10^3/uL (0.0-0.1); BASOPHILS % (AUTO) 0.8 %; EOSINOPHILS % (AUTO) 0.5 %; HCT - HEMATOCRIT 38.1 % (37.0-47.0); HGB - HEMOGLOBIN 12.2 g/dL (12.0-16.0); LYMPHOCYTES # (AUTO) 1.3 10^3/uL (1.5-3.5); LYMPHOCYTES % (AUTO) 16.7 %; MEAN CORPUSCULAR HEMOGLOBIN 30.5 pg (27.0-31.0); MEAN CORPUSCULAR VOLUME 95.3 fL (81.0-99.0); MEAN PLATELET VOLUME 9.3 fL (7.9-10.8); MONOCYTES # (AUTO) 0.5 10^3/uL (0.0-1.0); MONOCYTES % (AUTO) 6.8 %; NEUTROPHILS # (AUTO) 5.6 10^3/uL (1.5-6.6); NEUTROPHILS % (AUTO) 75.1 %; PLT - PLATELET COUNT 218 10^3/uL (130-450); RED CELL DISTRIBUTION WIDTH 13.5 % (12.0-15.0); WHITE BLOOD COUNT 7.5 x10^3/uL (4.8-10.8)
[2022-10-18 13:50] LABS: ALBUMIN 3.7 g/dL (3.2-5.5); ALBUMIN/GLOBULIN RATIO 1.2 (1.0-2.2); BILIRUBIN,TOTAL 0.6 mg/dL (0.2-1.0); CALCIUM 9.2 mg/dL (8.5-10.3); CREATININE 0.8 mg/dL (0.4-1.0); POTASSIUM 3.5 mmol/L (3.5-5.0); TOTAL PROTEIN 6.8 g/dL (6.7-8.2)
== END 2022-10-18 13:24 | disposition home or self-care (01) ==
LOC: LAB 13:23
PROVIDERS: ATTEND Internal Medicine Gastroenterology
DX: K86.2 Cyst of pancreas (principal)
CPT/HCPCS: 36415; 80053; 82378; 83690; 85025; 86301

== ENCOUNTER 2023-01-17 11:18 | Day surgery (SDC) | payer MEDICARE, BC ==
[2023-01-17] MEDS ORDERED: BUPIVACAINE 0.25% PF 30 ML VIAL ONE (11:49)
[2023-01-17] MEDS ORDERED: LIDOCAINE 1%-EPI 1:100000 20 ML MDV ONE (11:49)
[2023-01-17] MEDS ORDERED: LACTATED RINGERS 1,000 ML IV ONE ×2 (11:50→13:31)
--- NOTE | 2023-01-17 12:07 | ANESTHESIA ---
Pre-Anesthesia VS, & Labs - Diagnosis pancreatic cancer - Procedure placement of port Vital Signs: Temp Pulse Resp BP Pulse Ox O2 Flow Rate 36.4 C L 87 17 152/74 H 97 01/17/23 11:45 01/17/23 11:45 01/17/23 11:45 01/17/23 11:45 01/17/23 11:45 Height: 5 ft 7 in Weight (kg): 62 kg Body Mass Index: 21.4 BMI Classification: Normal - NPO >8 hours - Is Patient ?: No Home Medications and Allergies Home Medications: Ambulatory Orders Fluticasone [Flonase] 1 spray LETITIA DAILY 01/16/23 Losartan [Cozaar] 50 mg PO DAILY 03/12/22 Cholecalciferol (Vitamin D3) [Vitamin D3] 50 mcg PO DAILY 01/13/23 Omeprazole 20 mg PO UD 01/13/23 diltiaZEM CD [Cardizem Cd] 240 mg PO DAILY 01/13/23 Fluticasone [Flonase] 1 spray LETITIA DAILY 01/16/23 Allergies/Adverse Reactions: Allergies Allergy/AdvReac Type Severity Reaction Status Date / Time erythromycin base Allergy Unknown Verified 01/13/23 15:32 Penicillins Allergy Unknown Verified 01/13/23 15:32 Sulfa (Sulfonamide Allergy Nausea Verified 01/13/23 15:32 Antibiotics) Anes History & Medical History - Anesthetic History Anesthesia Complications: reports: No previous complications - Medical History Cardiovascular: reports: Hypertension, High cholesterol, Atrial fibrillation, Murmur Pulmonary: reports: None Gastrointestinal: reports: Other Urinary: reports: None Neuro: reports: None Musculoskeletal: reports: Osteoarthritis, Osteopenia Endocrine/Autoimmune: reports: None Blood Disorders: reports: None Skin: reports: Other Smoking Status: Former smoker Psychosocial: reports: No issues indicated History of Cancer?: Yes (pancreatic) - Surgical History Eyes Ears Nose Throat (EENT): reports: Cataracts, Tonsil/Adenoidectomy Gynecologic: reports: Hysterectomy, Oophrectomy Exam General: Alert, Oriented x3, Cooperative, No acute distress Dental: WNL Mouth Openin Fingerbreadth Neck Mobility: Normal Mallampati classification: II Thyromental Distance: 4-6 cm Mental/Cognitive Status: Alert/Oriented X3, Normal for patient Plan Anesthesia Type: MAC Consent for Procedure(s) Verified and Reviewed: Yes Code Status: Attempt Resuscitation ASA classification: 3-Severe systemic disease Is this case an emergency?: No
[2023-01-17] MEDS ORDERED: PROPOFOL 500 MG/50 ML 500 MG/50 ML VIAL ONE (12:12)
--- NOTE | 2023-01-17 12:41 | HISTORY & PHYSICAL EXAMINATION ---
Chief Complaint - Chief Complaint Chief Complaint: here for chemotherapy port History of Present Illness - History Obtained From Records Reviewed: yes History obtained from: pt Exam Limitations: none - History of Present Illness HPI Comment/Other: pancreatic cancer diagnosed by biopsy due to changes on surveillance ct for pancreatic cyst. no symptoms History - Past Medical History Cardiovascular: reports: Hypertension, High cholesterol, Atrial fibrillation, Murmur Respiratory: reports: None Neuro: reports: None Endocrine/Autoimmune: reports: None GI: reports: Other : reports: None Psych: reports: Panic attacks, Claustrophobia Musculoskeletal: reports: Osteoarthritis, Osteopenia Derm: reports: Other MRSA Hx?: No - Past Surgical History /HOUSE [employer]: reports: Hysterectomy, Oophrectomy HEENT: reports: Cataracts, Tonsil/Adenoidectomy Meds/Allgy - Home Medications Home Medications: Ambulatory Orders Medication Instructions Recorded Confirmed Apixaban [Eliquis] 5 mg PO BID 30 Days #60 tablet 02/26/22 01/17/23 Losartan [Cozaar] 50 mg PO DAILY 03/12/22 01/17/23 Cholecalciferol (Vitamin D3) 50 mcg PO DAILY 01/13/23 01/17/23 [Vitamin D3] Omeprazole 20 mg PO UD 01/13/23 01/16/23 diltiaZEM CD [Cardizem Cd] 240 mg PO DAILY 01/13/23 01/17/23 Fluticasone [Flonase] 1 spray LETITIA DAILY 01/16/23 01/16/23 - Allergies Allergies/Adverse Reactions: Allergies Allergy/AdvReac Type Severity Reaction Status Date / Time erythromycin base Allergy Unknown Verified 01/13/23 15:32 Penicillins Allergy Unknown Verified 01/13/23 15:32 Sulfa (Sulfonamide Allergy Nausea Verified 01/13/23 15:32 Antibiotics) Review of Systems - Other Findings Other Findings: 10 pt ros as above otherwise unremarkable Exam - Vital Signs Vital Signs: Vital Signs x48h Temp Pulse Resp BP Pulse Ox 01/17/23 11:45 36.4 C L 87 17 152/74 H 97 - Physical Exam General Appearance: positive: No acute distress, Alert Eyes Bilateral: positive: PERRL, EOMI, No scleral icterus ENT: positive: No signs of dehydration Neck: positive: No JVD, Trachea midline Respiratory: positive: No respiratory distress Cardiovascular: positive: Regular rate & rhythm Abdomen: positive: No distention Neurologic/Psychiatric: positive: Oriented x3 Conclusion/Plan - Problem List (1) Pancreatic cancer Conclusion/Plan: plan port placement. parq held and consent obtained
[2023-01-17] MEDS ORDERED: ceFAZolin 1 GM VIAL ONE (12:55)
[2023-01-17] MEDS ORDERED: BUPIVACAINE 0.25% PF 30 ML VIAL SUBQ ONE ×2 (13:07)
[2023-01-17] MEDS ORDERED: LIDOCAINE 1%-EPI 1:100000 30 ML MDV SUBQ ONE ×2 (13:08)
[2023-01-17] MEDS ORDERED: ONDANSETRON 4 MG/2 ML VIAL IVP PRN (13:36)
[2023-01-17] MEDS ORDERED: HYDROcod/ACETAM 5/325 MG TABLET PO PRN (13:36)
[2023-01-17 14:00] VITALS: BP 155/72
--- NOTE | 2023-01-17 14:06 | OPERATIVE REPORT ---
Operative Report - General Procedure Date: 01/17/23 Planned Procedure: left subclavian powerport placement Pre-Op Diagnosis: pancreatic cancer Procedure Performed: left subclavian powerport placement fluoroscopic guidance Post Op Diagnosis: same - Procedure Note Primary Surgeon: elbert collado Anesthesia Technique: Local, MAC Pathology: none Estimated Blood Loss (mL): 2 Drain/Tube Type: Other (none) Indications: need for chemotherapy Findings: tip at the junction svc and atrium. good flush and flow Complications: none - Other Other Information/Narrative: The patient was properly identified brought to the operating room and placed in supine position. Monitored anesthesia care was given as well as IV sedation. A towel roll was placed under the upper back. The patient was prepped and draped in a sterile fashion and given preoperative antibiotics. Local anesthetic was given. The left subclavian vein was easily accessed first pass with a needle. Guide wire placed and position confirmed. A subcutaneous pocket on the left upper chest was created measuring approximately 2-1/2 cm. Portacatheter tubing was then placed subcutaneous up to the venous access point. The portacatheter tubing was then easily placed with the use of a dilator peel-away sheath. The tubing was aspirated and flushed with saline. Under fluoroscopic guidance the tubing was pulled back to the junction of the atrium and the superior vena cava. The portacatheter aspirated and flushed easily assuring good position. The portacatheter was then cut to size and further assembled. The port was secured to subcutaneous tissue with 2 interrupted 4-0 Prolene sutures. The port again was aspirated and flushed now with heparin. Buried interrupted subdermal 3-0 Vicryl sutures were then placed. Skin was closed with buried interrupted and running 4-0 Monocryl subcuticular suture. Dressing was applied. The patient tolerated the procedure well was awakened and brought to recovery in good condition.
--- NOTE | 2023-01-17 14:09 | ANESTHESIA POST OP EVALUATION ---
Anesthesia Post Eval - Post Anesthesia Eval Vitals: Last Vital Signs Temp 36.4 C L 01/17/23 13:31 Pulse 75 01/17/23 13:54 Resp 18 01/17/23 13:54 BP 155/72 H 01/17/23 13:54 Pulse Ox 100 01/17/23 13:54 O2 Flow Rate CV Function Including HR & BP: Stable Pain Control: Satisfactory Nausea & Vomiting: Negative Mental Status: Baseline Respiratory Status: Airway Patent Hydration Status: Satisfactory Anesthesia Complications: None
--- NOTE | 2023-01-17 16:48 | XRAY Report ---
PROCEDURE: OR Port-A-Cath INDICATIONS: Portacath placement CONTRAST: FLUORO TIME: 000.5 TECHNIQUE: Real time fluoroscopy was performed of the thorax. COMPARISON: None. FINDINGS: Single fluoroscopic image demonstrates partially visualized presumed left-sided catheter with distal tip projecting over the proximal SVC. It is noted the fluoroscopic image does not have left right mar kings. IMPRESSION: Catheter placement as above. Reviewed by: Ness Olivares MD on 01/17/2023 4:47 PM PDT Approved by: Ness Olivares MD on 01/17/2023 4:47 PM PDT Station ID: [id number]
== END 2023-01-17 11:19 | disposition home or self-care (01) ==
LOC: SDS 11:18
PROVIDERS: ATTEND Surgery
DX: C25.9 Malignant neoplasm of pancreas, unspecified (principal); I48.91 Unspecified atrial fibrillation; Z87.891 Personal history of nicotine dependence
CPT/HCPCS: 36561; C1788; J7120

== ENCOUNTER 2023-03-07 11:20 | Outpatient (CLI) | payer MEDICARE, BC | END 2023-03-07 23:59 | disposition critical access hospital (66) | LOC: EMS 11:20 | DX: R00.0 Tachycardia, unspecified (principal); R55 Syncope and collapse | CPT/HCPCS: A0425; A0427 ==

== ENCOUNTER 2023-03-07 11:36 | Emergency (ER) | payer MEDICARE, BC ==
[2023-03-07] MEDS ORDERED: SODIUM CHLORIDE 0.9% 500 ML IV STA (11:47)
--- NOTE | 2023-03-07 11:49 | ED Physician Documentation ---
PD HPI CHEST PAIN - Stated complaint Stated Complaint: HIGH HEART RATE - Chief complaint Chief Complaint: Cardiac - History obtained from History obtained from: Patient - Additional information Additional information: Patient is an 82-year-old female presenting for evaluation of palpitations and elevated heart rate this morning. She has a history of atrial fibrillation and is on Eliquis. This morning when she woke up she felt her heart racing and checked it several times throughout the morning and noted heart rates up into the 130s and 140s. She denies having associated chest pain or shortness of air. She did take her morning medications around 845. She currently reports feeling asymptomatic. She is undergoing chemotherapy for pancreatic cancer. She denies vomiting or diarrhea. Her steamer tender is through [facility]. She called her steamer tender (Dr. Boo at [facility]) today who recommended she come to the emergency department for evaluation. She has been compliant with her Eliquis. She denies leg pain or swelling. Review of Systems Constitutional: denies: Fever Cardiac: reports: Palpitations. denies: Chest pain / pressure Respiratory: denies: Dyspnea GI: denies: Abdominal Pain, Vomiting Musculoskeletal: denies: Extremity swelling PD PAST MEDICAL HISTORY - Past Medical History Cardiovascular: Hypertension, High cholesterol, Atrial fibrillation, Murmur Respiratory: None Neuro: None Endocrine/Autoimmune: None GI: Other : None Psych: Panic attacks, Claustrophobia Musculoskeletal: Osteoarthritis, Osteopenia Derm: Other - Past Surgical History /EXPERIENTIAL THERAPIST: Hysterectomy, Oophrectomy HEENT: Cataracts, Tonsil/Adenoidectomy - Present Medications Home Medications: Ambulatory Orders Medication Instructions Recorded Confirmed Apixaban [Eliquis] 5 mg PO BID 30 Days #60 tablet 02/26/22 02/24/23 Losartan [Cozaar] 50 mg PO DAILY 03/12/22 02/24/23 Cholecalciferol (Vitamin D3) 50 mcg PO DAILY 01/13/23 02/24/23 [Vitamin D3] Omeprazole 20 mg PO UD 01/13/23 02/24/23 diltiaZEM CD [Cardizem Cd] 240 mg PO DAILY 01/13/23 02/24/23 Fluticasone [Flonase] 1 spray LETITIA DAILY 01/16/23 02/24/23 HYDROcod/ACETAM 5/325 [Rudyard 5/325] 1 each PO Q6H PRN #15 tablet 01/17/23 02/24/23 Nystatin [Mycostatin] 5 ml PO TID 01/27/23 02/24/23 Magnesium Oxide 400 mg PO BID 01/29/23 02/24/23 Potassium Chloride [K-Dur] 1 tab PO DAILY 02/27/23 02/27/23 diltiaZEM [Cardizem] 30 mg PO Q8H PRN #30 tablet 03/07/23 - Allergies Allergies/Adverse Reactions: Allergies Allergy/AdvReac Type Severity Reaction Status Date / Time erythromycin base Allergy Unknown Verified 01/13/23 15:32 Penicillins Allergy Unknown Verified 01/13/23 15:32 Sulfa (Sulfonamide Allergy Nausea Verified 01/13/23 15:32 Antibiotics) - Social History Smoking Status: Former smoker PD ED PE NORMAL - General General: Alert and oriented X 3, No acute distress, Well developed/nourished - HEENT HEENT: Atraumatic, Moist mucous membranes, Pharynx benign - Neck Neck: Supple, no meningeal sign - Cardiac Cardiac: RRR, No murmur - Respiratory Respiratory: No respiratory distress, Clear bilaterally - Abdomen Abdomen: Soft, Non tender - Derm Derm: Warm and dry - Extremities Extremities: No edema, No calf tenderness / cord - Neuro Neuro: Normal speech Results - Vitals Vitals: Vital Signs - 24 hr 03/07/23 03/07/23 03/07/23 11:40 15:00 15:19 Temperature 36.6 C Heart Rate 102 H 85 88 Respiratory 20 20 24 Rate Blood Pressure 149/102 H 125/68 129/68 O2 Saturation 99 94 98 Oxygen O2 Source Room air - EKG (time done) 1147 EKG releavant findings:: EKG personally interpreted by author of this note. Relevant findings are: Rate 84, normal sinus rhythm, no STEMI, no ST depressions Rate: Rate (enter#) (84) Rhythm: NSR Intervals: No: Prolonged QT Ischemia: No: ST elevation c/w ischemia 1336 EKG releavant findings:: EKG personally interpreted by author of this note. Relevant findings are: Rate 82, normal sinus rhythm, no STEMI Rate: Rate (enter#) (82) Rhythm: NSR Intervals: No: Prolonged QT Ischemia: No: ST elevation c/w ischemia - Labs Labs: Laboratory Tests 03/07/23 03/07/23 11:56 11:56 WBC 63.5 H* RBC 3.18 L Hgb 10.2 L Hct 31.5 L MCV 99.1 H MCH 32.1 H MCHC 32.4 RDW 16.8 H Plt Count 177 MPV 10.3 Neut # (Auto) Not Reportable Lymph # (Auto) Not Reportable Summers # (Auto) Not Reportable Eos # (Auto) Not Reportable Baso # (Auto) Not Reportable Absolute Nucleated RBC Not Reportable Total Counted 100 Band Neuts % (Manual) 14 H Abnorm Lymph % (Manual) 0 Nucleated RBC % Not Reportable Neutrophils # (Manual) 61.6 H Lymphocytes # (Manual) 1.3 L Monocytes # (Manual) 0.6 Eosinophils # (Manual) 0.0 Basophils # (Manual) 0.0 Differential Comment MANUAL DIFFERENTIAL Platelet Estimate NORMAL (130-450,000) Platelet Morphology NORMAL APPEARANCE RBC Morph Micro Appear NORMAL APPEARANCE Sodium 135 Potassium 3.9 Chloride 103 Carbon Dioxide 25 Anion Gap 7.0 BUN 16 Creatinine 0.7 Estimated GFR (MDRD) 80 L Glucose 127 H Calcium 9.0 Total Bilirubin 0.3 AST 21 ALT 31 Alkaline Phosphatase 126 H Total Protein 6.0 L Albumin 3.5 Globulin 2.5 Albumin/Globulin Ratio 1.4 PD Medical Decision Making - ED course Complexity details: reviewed results, re-evaluated patient, d/w patient ED course: 1350 - D/W Dr. Boo (Cards) - We discussed that patient has had a short period where she went back into an atrial arrhythmia but converted back to a sinus rhythm prior to getting another EKG. He recommends giving her prescription for Cardizem 30 mg short acting every 8 hours as needed for elevated heart rates lasting 60 minutes or longer. He also recommends close follow-up with him. 1454 - D/W Dr. Leary (Oncology) - Discussed leukocytosis. He states that this could be expected with the growth factor that patient is receiving Especially if her clinical picture does not suggest an infectious etiology. Patient is an 82-year-old female presenting for evaluation of elevated heart rate. She does have a history of atrial fibrillation and is anticoagulated on Eliquis. She denies associated symptoms such as chest pain or shortness of air. Her tachycardia and symptoms have resolved prior to arrival. Her heart rate is normal on arrival and her EKG demonstrates normal sinus rhythm. CBC and chemistries were obtained and reviewed. Her CBC is significant for elevated leukocytosis of 64 with bands of 14%. Patient is receiving chemotherapy as well as a growth factor injection. No chest pain to suggest ACS. Doubt pulmonary embolism as she is anticoagulated and has been compliant.Patient has remained relatively symptom-free here. She does not have symptoms to suggest infection. She did have a brief period where it appeared she went back into A-fib on the monitor with heart rate of 140 but this again resolved prior to getting another EKG. I did consult with her steamer tender and she will be given a prescription for short acting Cardizem to use as needed. I also consulted with on-call oncology regarding her leukocytosis and confirmed again that this could be expected given her treatment regiment. Patient has been feeling well here. She was eager to go home. She understands the treatment plan as well as need for follow-up with her specialists. She is also advised on concerning symptoms to return for. Departure - Departure Disposition: Home, Self Care Clinical Impression: Atrial fibrillation, Leukocytosis Condition: Stable Instructions: ED Afib Follow-Up: NUSRAT BOO MD [Physician No Access] - Nicko Morejon MD [Physician No Access] - Prescriptions: diltiaZEM [Cardizem] 30 mg PO Q8H PRN #30 tablet PRN Reason: Tachycardia Comments: You were evaluated for fast heart rate. During most of your ED course your heart rate has been in the normal range and the rhythm has also been back to a normal range. You did have a brief period where you went back into atrial fibrillation. We did consult with your steamer tender and are sending a prescription to [facility] in [place]. This is a short acting form of Cardizem and is to be taking if your heart rate is greater than 110 bpm for over an hour. Your white blood cell count was also elevated today and we did consult with the on-call oncologist - This can be expected with the medications that you are receiving And you are not demonstrating symptoms that suggest an infection at this time. Please return to the emergency department if you develop any worsening symptoms such as fever, chest pain, difficulty breathing or have any new concerns. Forms: PCP List Discharge Date/Time: 03/07/23 15:24
[2023-03-07 12:03] LABS: HCT - HEMATOCRIT 31.5 % (37.0-47.0); HGB - HEMOGLOBIN 10.2 g/dL (12.0-16.0); LYMPHOCYTES % (AUTO) 0.7 %; MEAN CORPUSCULAR HEMOGLOBIN 32.1 pg (27.0-31.0); MEAN CORPUSCULAR HGB CONC 32.4 g/dL (32.0-36.0); MEAN CORPUSCULAR VOLUME 99.1 fL (81.0-99.0); MEAN PLATELET VOLUME 10.3 fL (7.9-10.8); MONOCYTES % (AUTO) 0.8 %; NEUTROPHILS % (AUTO) 85.1 %; PLT - PLATELET COUNT 177 10^3/uL (130-450); RED BLOOD COUNT 3.18 10^6/uL (4.20-5.40); RED CELL DISTRIBUTION WIDTH 16.8 % (12.0-15.0)
[2023-03-07 12:07] LABS: WHITE BLOOD COUNT 63.5 x10^3/uL (4.8-10.8)
[2023-03-07 12:09] LABS: ABNORMAL LYMPHS % (MANUAL) 0 %
[2023-03-07 12:20] LABS: ALBUMIN 3.5 g/dL (3.2-5.5); ALBUMIN/GLOBULIN RATIO 1.4 (1.0-2.2); BAND NEUTROPHILS % (MANUAL) 14 %; BILIRUBIN,TOTAL 0.3 mg/dL (0.2-1.0); CREATININE 0.7 mg/dL (0.6-1.3); DIFFERENTIAL COMMENT MANUAL DIFFERENTIAL; LYMPHOCYTES # (MANUAL) 1.3 10^3/uL (1.5-3.5); LYMPHOCYTES % (MANUAL) 2 %; MONOCYTES # (MANUAL) 0.6 10^3/uL (0.0-1.0); NEUTROPHILS # (MANUAL) 61.6 10^3/uL (1.5-6.6); PLATELET ESTIMATE, MANUAL NORMAL (130-450,000) (NORMAL); PLATELET MORPHOLOGY NORMAL APPEARANCE (NORMAL); POTASSIUM 3.9 mmol/L (3.5-4.5); RBC MORPHOLOGY (MULTIPLE) NORMAL APPEARANCE (NORMAL)
[2023-03-07 15:26] VITALS: BP 129/68; O2SAT 98
== END 2023-03-07 15:24 | disposition home or self-care (01) ==
LOC: EDUNIT# → ED 11:36
DX: I48.91 Unspecified atrial fibrillation (principal); D72.829 Elevated white blood cell count, unspecified; D49.0 Neoplasm of unspecified behavior of digestive system; I10 Essential (primary) hypertension; Z79.01 Long term (current) use of anticoagulants; Z87.891 Personal history of nicotine dependence
CPT/HCPCS: 36415; 80053; 85025; 93005; 99284

== ENCOUNTER 2023-05-19 10:27 | Outpatient (CLI) | payer MEDICARE, BC ==
[2023-05-19 10:45] LABS: ALBUMIN 3.8 g/dL (3.2-5.5); ALBUMIN/GLOBULIN RATIO 1.5 (1.0-2.2); ALKALINE PHOSPHATASE 85 IU/L (42-121); ALT ALANINE AMINOTRANSFERASE 13 IU/L (10-60); AST ASPARTATE AMINOTRANSFERASE 15 IU/L (10-42); BILIRUBIN,TOTAL 0.5 mg/dL (0.2-1.0); BUN - BLOOD UREA NITROGEN 11 mg/dL (6-20); CALCIUM 9.5 mg/dL (8.5-10.3); CARBON DIOXIDE - CO2 30 mmol/L (21-32); CHLORIDE 106 mmol/L (101-111); CHOL/HDL RATIO 5.9 (<4.4); CHOLESTEROL 264 mg/dL; CREATININE 0.6 mg/dL (0.6-1.3); GFR - MDRD 95 (>89); GLUCOSE 111 mg/dL (74-104); HDL CHOLESTEROL 45 mg/dL; LDL CHOLESTEROL,CALCULATED 183 mg/dL; LDL/HDL RATIO 4.1 (<4.4); POTASSIUM 3.8 mmol/L (3.5-4.5); SODIUM 141 mmol/L (135-145); TOTAL PROTEIN 6.4 g/dL (6.4-8.9); TRIGLYCERIDES 181 mg/dL (48-352); VLDL CHOLESTEROL 36 mg/dL
== END 2023-05-19 10:28 | disposition home or self-care (01) ==
LOC: LAB 10:27
PROVIDERS: ATTEND Internal Medicine Cardiovascular Disease
DX: I10 Essential (primary) hypertension (principal); E78.2 Mixed hyperlipidemia
CPT/HCPCS: 36415; 80053; 80061; 83721

== ENCOUNTER 2023-09-22 10:55 | Outpatient (CLI) | payer MEDICARE ==
[2023-09-22 11:03] LABS: BASOPHILS % (AUTO) 0.8 %; EOSINOPHILS % (AUTO) 0.8 %; HCT - HEMATOCRIT 35.9 % (37.0-47.0); HGB - HEMOGLOBIN 11.6 g/dL (12.0-16.0); LYMPHOCYTES # (AUTO) 0.8 10^3/uL (1.5-3.5); LYMPHOCYTES % (AUTO) 15.3 %; MEAN CORPUSCULAR HEMOGLOBIN 31.4 pg (27.0-31.0); MEAN CORPUSCULAR HGB CONC 32.3 g/dL (32.0-36.0); MEAN PLATELET VOLUME 9.4 fL (7.9-10.8); MONOCYTES # (AUTO) 0.5 10^3/uL (0.0-1.0); MONOCYTES % (AUTO) 10.7 %; NEUTROPHILS # (AUTO) 3.6 10^3/uL (1.5-6.6); NEUTROPHILS % (AUTO) 72.2 %; PLT - PLATELET COUNT 188 10^3/uL (130-450); RED CELL DISTRIBUTION WIDTH 13.5 % (12.0-15.0)
[2023-09-22 11:17] LABS: ALBUMIN 3.8 g/dL (3.2-5.5); ALBUMIN/GLOBULIN RATIO 1.6 (1.0-2.2); ALKALINE PHOSPHATASE 90 IU/L (42-121); ALT ALANINE AMINOTRANSFERASE 12 IU/L (10-60); AST ASPARTATE AMINOTRANSFERASE 15 IU/L (10-42); BILIRUBIN,TOTAL 0.5 mg/dL (0.2-1.0); BUN - BLOOD UREA NITROGEN 18 mg/dL (6-20); CALCIUM 9.6 mg/dL (8.5-10.3); CARBON DIOXIDE - CO2 29 mmol/L (21-32); CHLORIDE 106 mmol/L (101-111); CHOL/HDL RATIO 3.2 (<4.4); CHOLESTEROL 161 mg/dL; CREATININE 0.8 mg/dL (0.6-1.3); GFR - MDRD 68 (>89); GLUCOSE 101 mg/dL (74-104); HDL CHOLESTEROL 50 mg/dL; LDL CHOLESTEROL,CALCULATED 77 mg/dL; LDL/HDL RATIO 1.5 (<4.4); POTASSIUM 3.8 mmol/L (3.5-4.5); SODIUM 139 mmol/L (135-145); TOTAL PROTEIN 6.2 g/dL (6.4-8.9); TRIGLYCERIDES 169 mg/dL (48-352); VLDL CHOLESTEROL 34 mg/dL
[2023-09-22 11:32] LABS: THYROID STIMULATING HORMONE 1.54 uIU/mL (0.34-5.60)
== END 2023-09-22 10:56 | disposition home or self-care (01) ==
LOC: LAB 10:55
PROVIDERS: ATTEND Internal Medicine
DX: I10 Essential (primary) hypertension (principal); C25.1 Malignant neoplasm of body of pancreas; E78.2 Mixed hyperlipidemia
CPT/HCPCS: 36415; 80053; 80061; 83721; 84443; 85025; 86301

== ENCOUNTER 2023-10-24 08:00 | Outpatient (CLI) | payer MEDICARE | END 2023-10-24 23:59 | disposition home or self-care (01) | LOC: PC 08:00 | PROVIDERS: ATTEND Nurse Practitioner Adult Health | DX: Z51.5 Encounter for palliative care (principal); C25.2 Malignant neoplasm of tail of pancreas; C78.7 Secondary malignant neoplasm of liver and intrahepatic bile duct; F41.9 Anxiety disorder, unspecified; M62.81 Muscle weakness (generalized); I48.0 Paroxysmal atrial fibrillation; Z71.89 Other specified counseling | CPT/HCPCS: 99215; G2212; 99417 ==

== ENCOUNTER 2023-11-04 08:00 | Outpatient (CLI) | payer MEDICARE | END 2023-11-04 23:59 | disposition home or self-care (01) | LOC: PC 08:00 | PROVIDERS: ATTEND Nurse Practitioner Adult Health | DX: Z51.5 Encounter for palliative care (principal); C25.2 Malignant neoplasm of tail of pancreas; C78.7 Secondary malignant neoplasm of liver and intrahepatic bile duct; F41.9 Anxiety disorder, unspecified; G62.9 Polyneuropathy, unspecified; I48.0 Paroxysmal atrial fibrillation; Z71.89 Other specified counseling; Z79.899 Other long term (current) drug therapy; Z79.01 Long term (current) use of anticoagulants | CPT/HCPCS: 99349 ==

== ENCOUNTER 2023-12-18 14:10 | Outpatient (CLI) | payer MEDICARE | END 2023-12-18 23:59 | disposition home or self-care (01) | LOC: PC 14:10 | PROVIDERS: ATTEND Nurse Practitioner Adult Health | DX: Z51.5 Encounter for palliative care (principal); C25.1 Malignant neoplasm of body of pancreas; C78.7 Secondary malignant neoplasm of liver and intrahepatic bile duct; T45.1X5A Adverse effect of antineoplastic and immunosuppressive drugs, initial encounter; L29.9 Pruritus, unspecified; F41.9 Anxiety disorder, unspecified; M62.81 Muscle weakness (generalized); G62.9 Polyneuropathy, unspecified | CPT/HCPCS: 99349 ==

== ENCOUNTER 2024-02-03 08:00 | Outpatient (CLI) | payer MEDICARE | END 2024-02-03 23:59 | disposition home or self-care (01) | LOC: PC 08:00 | PROVIDERS: ATTEND Nurse Practitioner Adult Health | DX: Z51.5 Encounter for palliative care (principal); F41.9 Anxiety disorder, unspecified; C25.1 Malignant neoplasm of body of pancreas; Z71.89 Other specified counseling | CPT/HCPCS: 99350 ==

== ENCOUNTER 2024-02-25 08:00 | Outpatient (CLI) | payer MEDICARE | END 2024-02-25 23:59 | disposition home or self-care (01) | LOC: PC 08:00 | PROVIDERS: ATTEND Nurse Practitioner Adult Health | DX: Z51.5 Encounter for palliative care (principal); C25.1 Malignant neoplasm of body of pancreas | CPT/HCPCS: 99426 ==

== ENCOUNTER 2024-03-18 15:00 | Outpatient (CLI) | payer MEDICARE | END 2024-03-18 23:59 | disposition home or self-care (01) | LOC: PC 15:00 | PROVIDERS: ATTEND Nurse Practitioner Adult Health | DX: Z51.5 Encounter for palliative care (principal); C25.1 Malignant neoplasm of body of pancreas; C78.7 Secondary malignant neoplasm of liver and intrahepatic bile duct; F41.9 Anxiety disorder, unspecified; Z71.89 Other specified counseling | CPT/HCPCS: 99349 ==